=== PATIENT | female | born 1980 | race Asian ===

== ENCOUNTER 2017-03-07 21:19 | Emergency (ER) | payer BC ==
[~2017-03-07] VITALS: Ht 172.7 cm; Wt 57.6 kg
--- NOTE | 2017-03-07 21:24 | Emergency Room Report ---
History of Present Illness General Chief Complaint: Lower Extremity Injury Source: Patient Present Illness [facility] This is a 36-year-old female with no past medical history. She presents with right knee pain. She was an aerobic class and was doing backward lunge when she fell a pop to her right knee. She then fell down because of the pain. Unable to get up. There was some abnormality to the knee cap. 911 was called. Pain is 7/10. Worse with any movement. Denies any other injury. No trauma. Allergies: Coded Allergies: No Known Allergies (Unverified , 03/07/17) Patient History Past Medical History: see triage record, old chart reviewed Past Surgical History: none Pertinent Family History: none Social History: Denies: smoking Last Menstrual Period: "last month" Now: No Immunizations: other Reviewed Nursing Documentation: PMH: Agreed, PSxH: Agreed Nursing Documentation-PMH Past Medical History: No Stated History Review of Systems Eye: Denies: eye pain, blurred vision ENT: Denies: ear pain, nose congestion, throat swelling Respiratory: Denies: cough, shortness of breath Cardiovascular: Denies: chest pain, palpitations Gastrointestinal: Denies: abdominal pain, diarrhea, nausea, vomiting Musculoskeletal: Reports: joint pain, Denies: back pain Skin: Denies: rash Neurological: Denies: headache, numbness Endocrine: Denies: increased thirst, increased urine Hematologic/Lymphatic: Denies: easy bruising All Other Systems: negative except mentioned in HPI Physical Exam Vital Signs Date Time Temp Pulse Resp B/P (MAP) Pulse Ox O2 Delivery O2 Flow Rate FiO2 03/07/17 21:02 98.1 76 18 108/65 98 Room Air vitals normal Sp02 EP Interpretation: reviewed, normal General Appearance: well appearing, no apparent distress, alert Head: normocephalic, atraumatic Eyes: bilateral eye PERRL, bilateral eye EOMI ENT: hearing grossly normal, normal pharynx Neck: full range of motion, supple, no meningismus Respiratory: chest non-tender, lungs clear, normal breath sounds Cardiovascular #1: regular rate, rhythm, no murmur Gastrointestinal: normal bowel sounds, non tender, no mass, no organomegaly, no bruit, non-distended Musculoskeletal: back normal, other - Right knee: There is lateral displacement of the patella. There is effusion. Patient unable to flex or extend her knee. Ankle is stable. Sensation normal. Pulses normal. Psychiatric: mood/affect normal Skin: warm/dry Procedures Splinting Splinting : Consent: Verbal Location: Right knee Pre-Made Type: knee immobilizer Pre-Proc Neuro Vasc Exam: normal Post-Proc Neuro Vasc Exam: normal Patient Tolerated: Well Complications: None Joint Reduction Joint Reduction : Consent: Verbal Joint Reduction Site: patella (R) Procedural Sedation: No Reduction Attempts: One Pre-Procedure NV Exam: Yes Post-Procedure NV Exam: Yes Post Joint Reduction Film: joint reduced Patient Tolerated: Well Complications: None Progress With my thumb pushing medially and extending her leg, I reduced the patella without any difficulty. Patient procedure without a problem. Medical Decision Making Diagnostic Impression: Primary Impression: Dislocation of patella, right, closed Qualified Codes: S83.004A - Unspecified dislocation of right patella, initial encounter ER Course Is a 36-year-old female presents with a patella dislocation. The inferior and posterior patella tendon due to be intact and palpable. She does have effusion medially. No evidence of fracture. Reduce easily. We'll discharge home with crutches. Other X-Ray Diagnostic Results Other X-Ray Diagnostic Results : X-Ray ordered: Right knee x-rays # of Views/Limited Vs Complete: 3 View Indication: Pain EP Interpretation: Yes Interpretation: no dislocation, no fractures, other - Knee effusion Impression: Other - Knee effusion. No fracture Electronically Signed by: Leighton Strong MD Last Vital Signs Date Time Temp Pulse Resp B/P (MAP) Pulse Ox O2 Delivery O2 Flow Rate FiO2 03/07/17 21:02 98.1 76 18 108/65 98 Room Air Status: improved Disposition: HOME, SELF-CARE Condition: Stable Scripts Ibuprofen* (MOTRIN*) 600 Mg Tablet 600 MG ORAL THREE TIMES A DAY, #30 TAB 0 Refills Prov: LEIGHTON STRONG M.D. 03/07/17 Additional Instructions: Ice pack to the area. I recommend a knee brace on the exercise. We for swelling go down first. Return if symptom worsen. You may be an MRI to look at the ligament if continue with knee pain and swelling. LEIGHTON STRONG M.D. Mar 07, 2017 21:24
[2017-03-07] MEDS ORDERED: IBUPROFEN600 MG ORAL (21:49)
[2017-03-07 22:20] VITALS: BP 108/65
--- NOTE | 2017-03-08 11:19 | Diagnostic Imaging Report ---
Indication: Pain 3 views of the right knee were obtained. Findings: No acute fracture, malalignment, or joint effusion are identified. Joint space is relatively well-maintained. Impression: Negative for acute findings.
== END 2017-03-07 22:20 | disposition home or self-care (01) ==
LOC: EDBD 21:19 → EMR 22:20
DX: S83.004A Unspecified dislocation of right patella, initial encounter (principal); X50.1XXA Overexertion from prolonged static or awkward postures, initial encounter; X50.9XXA Other and unspecified overexertion or strenuous movements or postures, initial encounter; Y93.A3 Activity, aerobic and step exercise; Y92.9 Unspecified place or not applicable
CPT/HCPCS: 99284